=== PATIENT | female | born 1970 | race Caucasian/White ===

== ENCOUNTER → 2016-05-31 | Outpatient (CLI) | payer OTHER | LOC: RAD 07:24 | DX: Z12.31 Encounter for screening mammogram for malignant neoplasm of breast (principal) ==

== ENCOUNTER → 2016-06-08 | Outpatient (CLI) | payer OTHER | LOC: RAD 11:09 | DX: R92.8 Other abnormal and inconclusive findings on diagnostic imaging of breast (principal) ==

== ENCOUNTER 2017-05-24 11:40 | Emergency (ER) | payer OTHER ==
[~2017-05-24] VITALS: Ht 162.6 cm; Wt 77.1 kg
[2017-05-24 12:10] LABS: URINE BILIRUBIN NEGATIVE (Negative); URINE BLOOD NEGATIVE (Negative); URINE CLARITY CLEAR; URINE COLOR YELLOW; URINE GLUCOSE-RANDOM* NEGATIVE (Negative); URINE KETONES NEGATIVE (Negative); URINE LEUKOCYTES NEGATIVE (Negative); URINE NITRITE NEGATIVE (Negative); URINE PROTEIN (DIPSTICK) NEGATIVE (Negative); URINE UROBILINOGEN 0.2 E.U./dl (0.2-1.0)
[2017-05-24 12:30] LABS: ABSOLUTE NEUTROPHILS 4.7 thou/uL (1.4-8.2); BASOPHILS 0.5 % (0.0-2.0); HEMATOCRIT 37.5 % (37.0-47.0); HEMOGLOBIN 13.1 gm/dL (12.0-15.0); LYMPHOCYTES 29.4 % (24.0-44.0); MCH 30.3 pg (26.0-34.0); MCHC 34.8 g/dL (28.0-37.0); MONOCYTES 5.4 % (1.0-8.0); PLATELET COUNT 276 thou/uL (150-400); POLYS 64.7 % (36.0-66.0); RBC 4.31 mil/uL (4.20-5.00); RDW 12.9 % (10.5-14.5); WBC 7.3 thou/uL (4.0-11.0)
[2017-05-24 12:34] LABS: CALCIUM 9.1 mg/dL (8.5-10.1); CREATININE 0.9 mg/dL (0.6-1.0)
[2017-05-24 12:40] LABS: ALBUMIN 3.8 g/dL (3.4-5.0); TOTAL BILIRUBIN 0.5 mg/dL (<0.1-1.0); TOTAL PROTEIN 7.7 g/dL (6.4-8.2)
[2017-05-24] MEDS ORDERED: FLEXERIL PO (14:57)
[2017-05-24] MEDS ORDERED: PREDNISONE 20 M20 M1 PO (14:57)
[2017-05-24] MEDS ORDERED: NORCO 10-325 T1 EACH PO (14:57)
[2017-05-24 15:29] VITALS: BP 134/84
== END 2017-05-24 15:30 | disposition home or self-care (01) ==
LOC: ER 11:40
PROVIDERS: Physician Assistant
DX: M51.26 Other intervertebral disc displacement, lumbar region (principal); R10.9 Unspecified abdominal pain; I10 Essential (primary) hypertension; E03.9 Hypothyroidism, unspecified; E78.5 Hyperlipidemia, unspecified

== ENCOUNTER 2018-10-08 09:05 | Emergency (ER) | payer OTHER ==
[~2018-10-08] VITALS: Ht 162.6 cm; Wt 86.2 kg
[~2018-10-08 09:05] MED LIST: FLEXERIL PO; LISINOPRIL40 MG PO; MOBIC7.5 MG PO; NORCO 10-325 T1 EACH PO; PREDNISONE 20 M20 M1 PO; PREVACID30 M2 PO; SERTRALINE HCL50 MG PO; SYNTHROID125 MC1 PO; ZOCOR40 MG PO
[2018-10-08 09:33] LABS: ABSOLUTE NEUTROPHILS 4.7 thou/uL (1.4-8.2); BASOPHILS 0.3 % (0.0-2.0); EOSINOPHILS 0.1 % (0.0-3.0); HEMATOCRIT 40.8 % (37.0-47.0); HEMOGLOBIN 13.8 gm/dL (12.0-15.0); LYMPHOCYTES 33.7 % (24.0-44.0); MCH 28.9 pg (26.0-34.0); MCHC 33.8 g/dL (28.0-37.0); MCV 85.7 fL (80.0-100.0); MONOCYTES 6.5 % (1.0-8.0); PLATELET COUNT 341 thou/uL (150-400); POLYS 59.4 % (36.0-66.0); RBC 4.76 mil/uL (4.20-5.00); RDW 12.8 % (10.5-14.5); WBC 7.9 thou/uL (4.0-11.0)
[2018-10-08 09:41] LABS: ANION GAP 9 mmol/L (7-16); BUN 17 mg/dL (7-18); CALCIUM 9.5 mg/dL (8.5-10.1); CHLORIDE 98 mmol/L (98-107); CO2 27 mmol/L (21-32); CREATININE 1.3 mg/dL (0.6-1.0); GLUCOSE 126 mg/dL (74-106); POTASSIUM 3.8 mmol/L (3.5-5.1); SODIUM 134 mmol/L (136-145)
[2018-10-08 09:49] LABS: ALBUMIN 4.1 g/dL (3.4-5.0); MAGNESIUM 1.8 mg/dL (1.8-2.4); SGOT 22 U/L (15-37); SGPT 31 U/L (30-65); TOTAL BILIRUBIN 0.3 mg/dL (<0.1-1.0); TOTAL PROTEIN 7.9 g/dL (6.4-8.2); TROPONIN-I <0.06 ng/mL (<0.06)
[2018-10-08] MEDS ORDERED: ZOFRAN ODT4 MG DISSOLVE (11:47)
[2018-10-08] MEDS ORDERED: PRILOSEC OTC20 MG PO (11:47)
[2018-10-08] MEDS ORDERED: TRAMADOL 50 MG50 MG PO (11:47)
[2018-10-08 11:56] LABS: URINE BLOOD NEGATIVE (Negative); URINE CLARITY SL CLOUDY; URINE COLOR YELLOW; URINE GLUCOSE-RANDOM* NEGATIVE (Negative); URINE KETONES TRACE (Negative); URINE LEUKOCYTES-REFLEX 1+ (Negative); URINE NITRITE-REFLEX NEGATIVE (Negative); URINE PROTEIN (DIPSTICK) 2+ (Negative); URINE UROBILINOGEN 0.2 E.U./dl (0.2-1.0)
[2018-10-08 11:59] LABS: ICTOTEST (BILI CONFIRMATORY) Negative (Negative); URINE BILIRUBIN NEGATIVE (Negative)
[2018-10-08 12:25] VITALS: BP 124/72
[2018-10-08 12:29] LABS: HYALINE CASTS 0-3 Few /LPF (None Seen)
[2018-10-08 12:30] LABS: SQUAMOUS >10 Many /LPF (0-3); URINE WBC-REFLEX 6-15 Few /HPF (0-5)
[2018-10-08 12:31] LABS: CRYSTALS None Seen /LPF (None Seen); URINE RBC 0-2 Rare /HPF (0-2)
--- NOTE | 2018-10-08 13:24 | EKG ---
[place] [address] [facility] [place] [address] ELECTROCARDIOGRAM REPORT Name: TORIE HENLEY Room #: [facility]P [facility] [id number] Admission: 10/08/18 Attend Phys: Discharge: 10/08/18 Date of : 74 Report #: [id number] THIS REPORT FOR: //name// [facility] ED Test Date: 2018-10-08 Test Time: 09:11:26 Pat Name: TORIE HENLEY Department: Room: Gender: F Apartment House Manager: 12 : 1970 Requested By: Gordon Dumont Order Number: [id number] MD: Emmett Henriquez Measurements Intervals [place] Rate: 77 P: 17 [place]: 178 QRS: 64 QRSD: 92 T: 40 QT: 369 QTc: 418 Interpretive Statements Sinus rhythm Normal tracing No previous ECG available for comparison Electronically Signed On 10-08-2018 13:24:39 CDT by Emmett Henriquez [email or web address] <ELECTRONICALLY SIGNED> By: Emmett Henriquez MD, [facility] 10/08/18 1324 0911 0 Emmett Henriquez MD, FAC /EPI
== END 2018-10-08 12:25 | disposition home or self-care (01) ==
LOC: ER 09:05
PROVIDERS: Emergency Medicine
DX: I95.1 Orthostatic hypotension (principal); T38.0X5A Adverse effect of glucocorticoids and synthetic analogues, initial encounter; M54.5 Low back pain; R10.10 Upper abdominal pain, unspecified; R42 Dizziness and giddiness; I10 Essential (primary) hypertension; E03.9 Hypothyroidism, unspecified; E78.5 Hyperlipidemia, unspecified; Z90.89 Acquired absence of other organs; Y92.89 Other specified places as the place of occurrence of the external cause

== ENCOUNTER → 2018-12-22 | Outpatient (CLI) | payer OTHER ==
[~2018-12-22] MED LIST changes: +PRILOSEC OTC20 MG PO; +TRAMADOL 50 MG50 MG PO; +ZOFRAN ODT4 MG DISSOLVE
--- NOTE | 2018-12-24 17:06 | PATH ---
[facility] [address] [place] [address] PATHOLOGY RPT PROCEDURE Name: LORYTORIE RUIZ Room #: REG EDUIN Bhatt.#: [id number] Admission: 12/22/18 Date of : 74 Discharge: Report #: [id number] Path Case #: [id number] [facility] Accession Number: [id number] . 01 Material submitted: . stomach - BIOPSY OF RANDOM GASTRIC TISSUE TO R/O H. PYLORI . 01 Clinical history: . Pre-op diagnosis: Epigastric pain (EGD), screening (colon) Post-op diagnosis: Hiatal hernia, gastritis, normal colon R/O H. pylori . 02 Diagnosis: Gastric mucosa, random gastric tissue to rule out H. pylori, endoscopic biopsy: - Mild reactive gastropathy. - Negative for intestinal metaplasia or atrophy. - Negative for Helicobacter pylori (properly controlled immunohistochemical stain performed). (IUV/db; 12/24/2018) LBQ 12/24/2018 1336 Local . 02 Electronically signed: . Antoinette Monzon MD, Pathologist NPI- [id number] . 01 Gross description: . The specimen is received in formalin, labeled "Torie Henley, random gastric biopsy to R/O H. pylori". Received are five segments of pale valles soft tissue ranging in size from 0.3 to 0.6 cm in maximum dimensions. The specimen is submitted entirely in cassette A1. (CAA; 12/23/2018) QA/QA 12/23/2018 1126 Local . 02 Pathologist provided ICD-10: K31.9 . 02 CPT . 830789, N00197 Specimen Comment: A courtesy copy of this report has been sent to [phone] Specimen Comment: [phone] Specimen Comment: Report sent to / DR MENDOZA Performed at: [address] [id number] MD Naren Cross MD Phone: [phone] [place] [address] PATHOLOGY RPT PROCEDURE Name: TORIE HENLEY Room #: REG EDUIN Johnson#: [id number] Admission: 12/22/18 Date of : 74 Discharge: Report #: [id number] Path Case #: [id number] Performed at: [address] [id number] MD Antoinette Monzon MD Phone: [phone]
== END | disposition home or self-care (01) ==
LOC: GI 10:34
DX: Z12.11 Encounter for screening for malignant neoplasm of colon (principal); K31.9 Disease of stomach and duodenum, unspecified; K21.9 Gastro-esophageal reflux disease without esophagitis; I10 Essential (primary) hypertension; E78.00 Pure hypercholesterolemia, unspecified; E03.9 Hypothyroidism, unspecified; Z90.49 Acquired absence of other specified parts of digestive tract; Z98.890 Other specified postprocedural states; Z79.899 Other long term (current) drug therapy
CPT/HCPCS: 62110; 62900

== ENCOUNTER → 2019-07-23 | Outpatient (CLI) | payer OTHER ==
[2019-07-23 11:19] LABS: ALBUMIN 4.1 g/dL (3.4-5.0); ANION GAP 8 mmol/L (7-16); BUN 17 mg/dL (7-18); CALCIUM 8.9 mg/dL (8.5-10.1); CHLORIDE 101 mmol/L (98-107); CHOLESTEROL 243 mg/dL (<200); CO2 28 mmol/L (21-32); CREATININE 1.1 mg/dL (0.6-1.0); GLUCOSE 83 mg/dL (74-106); HDL CHOLESTEROL 51 mg/dL (>40); LDL CHOLESTEROL 155 mg/dL (<100); POTASSIUM 4.2 mmol/L (3.5-5.1); SGOT 41 U/L (15-37); SGPT 61 U/L (30-65); SODIUM 137 mmol/L (136-145); TC:HDL 4.8 Ratio (Not establshd); TOTAL BILIRUBIN 0.4 mg/dL (0.2-1.0); TOTAL PROTEIN 7.3 g/dL (6.4-8.2); TRIGLYCERIDE 185 mg/dL (<150); VLDL 37 mg/dL (<40)
== END ==
LOC: LABMALL 10:10
PROVIDERS: Family Medicine
DX: E78.5 Hyperlipidemia, unspecified (principal)

== ENCOUNTER → 2020-02-04 | Outpatient (CLI) | payer OTHER | LOC: LAB 14:30 | PROVIDERS: ATTEND Family Medicine | DX: Z20.828 Contact with and (suspected) exposure to other viral communicable diseases (principal) ==

== ENCOUNTER → 2020-03-08 | Outpatient (CLI) | payer OTHER ==
[2020-03-08 09:55] LABS: ALBUMIN 4.2 g/dL (3.4-5.0); ANION GAP 9 mmol/L (7-16); BUN 14 mg/dL (7-18); CALCIUM 9.8 mg/dL (8.5-10.1); CHLORIDE 102 mmol/L (98-107); CHOLESTEROL 284 mg/dL (<200); CO2 29 mmol/L (21-32); GLUCOSE 87 mg/dL (74-106); HDL CHOLESTEROL 51 mg/dL (>40); LDL CHOLESTEROL 162 mg/dL (<100); POTASSIUM 4.1 mmol/L (3.5-5.1); SGOT 23 U/L (15-37); SGPT 32 U/L (30-65); SODIUM 140 mmol/L (136-145); TC:HDL 5.6 Ratio (Not establshd); TOTAL BILIRUBIN 0.3 mg/dL (0.2-1.0); TOTAL PROTEIN 7.8 g/dL (6.4-8.2); TRIGLYCERIDE 356 mg/dL (<150); VLDL 71 mg/dL (<40)
== END ==
LOC: LAB 08:38
PROVIDERS: ATTEND Family Medicine
DX: E78.5 Hyperlipidemia, unspecified (principal); E03.9 Hypothyroidism, unspecified

== ENCOUNTER → 2020-06-01 | Outpatient (CLI) | payer OTHER ==
[2020-06-01 14:39] LABS: ABSOLUTE NEUTROPHILS 6.2 thou/uL (1.4-8.2); BASOPHILS 0.4 % (0.0-2.0); EOSINOPHILS 0.2 % (0.0-3.0); HEMATOCRIT 37.9 % (37.0-47.0); HEMOGLOBIN 12.9 gm/dL (12.0-15.0); LYMPHOCYTES 42.4 % (24.0-44.0); MCH 29.7 pg (26.0-34.0); MCHC 34.2 g/dL (28.0-37.0); MONOCYTES 7.4 % (1.0-8.0); PLATELET COUNT 365 thou/uL (150-400); POLYS 49.6 % (36.0-66.0); RBC 4.35 mil/uL (4.20-5.00); RDW 13.1 % (10.5-14.5); WBC 12.5 thou/uL (4.0-11.0)
[2020-06-01 15:01] LABS: ALBUMIN 3.7 g/dL (3.4-5.0); ANION GAP 9 mmol/L (7-16); BUN 21 mg/dL (7-18); CHLORIDE 103 mmol/L (98-107); CHOLESTEROL 226 mg/dL (<200); CO2 29 mmol/L (21-32); CREATININE 1.2 mg/dL (0.6-1.0); GLUCOSE 80 mg/dL (74-106); HDL CHOLESTEROL 65 mg/dL (>40); LDL CHOLESTEROL 117 mg/dL (<100); POTASSIUM 3.6 mmol/L (3.5-5.1); SGOT 21 U/L (15-37); SGPT 29 U/L (30-65); SODIUM 141 mmol/L (136-145); TC:HDL 3.5 Ratio (Not establshd); TOTAL BILIRUBIN 0.3 mg/dL (0.2-1.0); TOTAL PROTEIN 7.2 g/dL (6.4-8.2); TRIGLYCERIDE 221 mg/dL (<150); VLDL 44 mg/dL (<40)
[2020-06-02 05:07] LABS: GLYCOHEMOGLOBIN (HGB A1C) 5.7 % (4.8-5.6)
== END ==
LOC: MRI 14:02
PROVIDERS: ATTEND Family Medicine
DX: Z00.00 Encounter for general adult medical examination without abnormal findings (principal); M54.9 Dorsalgia, unspecified; M47.26 Other spondylosis with radiculopathy, lumbar region; M51.16 Intervertebral disc disorders with radiculopathy, lumbar region; M48.061 Spinal stenosis, lumbar region without neurogenic claudication; M25.80 Other specified joint disorders, unspecified joint

== ENCOUNTER → 2020-06-15 | Outpatient (CLI) | payer OTHER ==
[~2020-06-15] VITALS: Ht 162.6 cm; Wt 85.3 kg
[~2020-06-15] MED LIST changes: +CLARITIN10 M3 PO; +CYMBALTA60 MG PO; +FISH OIL 1,0001 EAC9 PO; -LISINOPRIL40 MG PO; +PEPCID20 MG PO; -PREVACID30 M2 PO; +PROBIOTIC1 EAC7 PO; +SENNA PLUS TAB1 EACH PO; +SUPER THERAVIT1 EACH PO; +TRICOR145 MG PO; +ZESTRIL20 MG PO
[2020-06-15 10:16] VITALS: BP 120/83
--- NOTE | 2020-06-15 10:52 | NUR ---
Pain Clinic Assessment: 1. History of Osteoarthritis: Not Applicable History of Rheumatoid Arthritis: Not Applicable 2. Height: 5 ft. 4 in. 162.6 cm. Weight: 188.0 lb. oz. 85.276 kg. Patient's BMI: 32.3 3. Vital Signs: BP: 120/83 Pulse: 92 Resp: 16 Temp: 02 Sat: 98 ECG Mon: 4. Pain Intensity: 5 5. Fall Risk: Dizziness: N Needs help standing or walking: N Fallen in the last 3 months: N Fall risk comments: 6. Patient on Blood Thinner: None 7. History of Hypertension: Y 8. Opioid Therapy greater than 6 weeks: N Opiate Contract Signed: 9. Risk Assessment Tool Provided: MODERATE 10. Functional Assessment Tool: 11. Recreational Drug Use: Past greater than 3 mos Drug Type: MARIJUANIA Tobacco Use: Never Smoker Tobacco Type: Amount or Packs/day: How Many Years: Alcohol Use: No Frequency: Quant:
--- NOTE | 2020-06-21 11:27 | HPC ---
[facility] [place] [address] PAIN MANAGEMENT CONSULTATION Name: TORIE HENLEY Room #: REG [facility] [id number] Admission: 06/15/20 Attend Phys: Martin Solomon DO Discharge: Date of : 74 Report #: [id number] THIS REPORT FOR: cc: Martin Hernandez James A. DO Johnson, James E. DO ~ DOC #: [id number] cc: DO Martin Ervin DO DATE OF SERVICE: 06/15/2020 REFERRING PHYSICIAN: Dr. Hernandez. CHIEF COMPLAINT: Left upper buttock and posterolateral thigh pain. HISTORY OF PRESENT ILLNESS: As you know, the patient is a very pleasant 49-year-old female who reports acute onset of left upper buttock and posterolateral thigh pain along with intermittent inguinal pain on the left side that began on 05/02/2020. The patient denies any specific injury or trauma. She has been provided 2 Medrol Dosepaks, both of which were helpful, but only during the time that she was on the steroid. She has had an IM Depo-Medrol injection about 2 weeks ago, which has improved overall pain. Prior to these treatments, the patient was undergoing chiropractic manipulation with myofascial release and decompression tables, which were providing some improvement. She also states that heating pad and foam roller over the area that tend to improve pain as well. She indicates that her pain is not present when lying down. She says it is hard to sit or stand for any length of time due to ongoing pain. She has been referred to our service to discuss treatment options for left buttock and posterolateral thigh pain, unresolved with conservative treatment. The patient indicates today pain is continuous. She describes the pain as burning, aching, pulling, sharp and stabbing, places current pain score of 5/0 daily average anywhere from 3-5/10. Worst pain has been is 10+/10. The patient reports the pain is only present while sitting or standing for long periods of time, improves with lying down, heat pads, myofascial release and foam rollers. She has been referred to our service to discuss treatment options for left buttock and posterolateral thigh pain. PAST MEDICAL HISTORY: 1. Hypertension. 2. Thyroid disease. 3. Emotional problems. 4. Degenerative joint disease. 5. Osteoarthritis. 6. History of gallbladder disease. 7. Gastroesophageal reflux disease. [facility] [address] [place] [address] PAIN MANAGEMENT CONSULTATION Name: TORIE HENLEY Room #: REG [facility].#: [id number] Admission: 06/15/20 Attend Phys: Martin Solomon DO Discharge: Date of : 74 Report #: [id number] 8. Seasonal allergies. PAST SURGICAL HISTORY: 1. Tonsillectomy, adenoidectomy. 2. Breast reduction. 3. Cholecystectomy. 4. Uterine ablation. SOCIAL HISTORY: The patient denies tobacco use. Denies IV or illicit drug use. Denies any chronic alcohol use. She does admit to marijuana use. She is employed as a nurse. She is working, not receiving workmen's compensation nor is she trying to obtain disability benefits. She is not in litigation in regard to pain. She is unaccompanied at today's visit. REVIEW OF SYSTEMS: Positive for night sweats, fatigue, weakness, peptic ulcer disease, gastroesophageal reflux disease, bilateral hand numbness, insomnia, thyroid disease. All other review of systems negative per 12-point review of systems other than those listed in history of present illness. Pain impact score 26-70. Mild to moderate interference of daily activities secondary to pain. ALLERGIES: CODEINE AND FENTANYL. CURRENT MEDICATIONS: Senokot-S 1 tablet p.o. at bedtime, probiotic 1 tablet per day, multivitamin 1 tablet per day, loratadine 10 mg p.r.n., [place] 3 fish oil 1 tablet per day, duloxetine 60 mg per day, fenofibrate 145 mg per day, famotidine 20 mg per day, levothyroxine 125 mcg daily, lisinopril 20 mg per day. IMAGING: MRI of the lumbar spine obtained on 06/01/2020 shows a T12-L1 unremarkable, L1-L2 unremarkable, L2-L3 unremarkable, L3-L4 unremarkable, L4-L5 unremarkable. L5-S1 shows disk space tapering endplate degenerative changes with minimal disk bulging, mild posterior facet degenerative changes. No significant neural foraminal or central canal stenosis. PHYSICAL EXAMINATION: VITAL SIGNS: Blood pressure 120/83, pulse 92, respiratory rate 16 and unlabored. The patient 98% on room air. Height 5 feet 4 inches tall, weight 188 pounds, BMI calculated 32.3. GENERAL: Well-developed, well-nourished, well-hydrated 49-year-old female appearing her stated age, placing current pain score of 5/10. HEENT: Normocephalic and atraumatic. Pupils are equal, round and responsive. The patient has normal extraocular muscular movement. She is wearing a mask in compliance with COVID-19 regulations. LUNGS: Clear. No wheeze, rhonchi or rales. CARDIOVASCULAR: Regular. No appreciable gallop, no rub. ABDOMEN: Soft, obese, normoactive bowel sounds. [facility] [address] [place] [address] PAIN MANAGEMENT CONSULTATION Name: TORIE HENLYE Room #: REG EDUIN Miller.#: [id number] Admission: 06/15/20 Attend Phys: Martin Solomon DO Discharge: Date of : 74 Report #: [id number] EXTREMITIES: Show no clubbing, no cyanosis. No appreciable edema. MUSCULOSKELETAL: The patient has palpatory tenderness over the left sacroiliac joint negative on the right. Thigh thrust maneuver is positive on the left. Bola test positive on the left, negative right. Modified Gaenslen's positive for axial low back pain on the left, negative right. Jose Manuel's test is positive with SI joint pain noted with this maneuver. No intrinsic hip pathology. Gait is mildly antalgic favoring the left lower extremity. Muscle bulk and tone equal and symmetrical in lower extremities, 5/5 intact to light touch from L1 through S2 dermatomes. Deep tendon reflexes are equal and symmetrical at the patella and Achilles. There is a noted 1 cm leg length discrepancy between the right lower extremity and left with left lower extremity 1 cm longer than the right. ASSESSMENT: 1. Sacroiliac joint dysfunction. 2. Sacroiliac joint pain. 3. Mild facet arthropathy, lumbar spine. PLAN: 1. Based on today's physical exam, the history the patient has provided, the description the patient uses in regard to pain as well as location of symptoms, it would appear the patient is suffering from sacroiliac joint pain. This was confirmed with the physical exam today. We did review the patient's MRI in its entirety and please do advise the patient there is only mild arthritic changes, no significant central canal or neural foraminal stenosis. The source of the pain correlates with left SI joint dysfunction. The imaging of the MRI does not complete the SI joint area, and thus, I cannot advise the patient on the amount of changes in the SI area. Given the fact that this is a new onset of symptoms, I would consider this to be more of an acute issue and should be treated in the following manner. We discussed physical therapy, stretching exercises and pelvic manipulation whether this be through her current chiropractor or she is [facility], who is adept at manipulation of the pelvic area to address sacroiliac joint dysfunction. We discussed suggestions and medication management utilizing a consistent nonsteroidal anti-inflammatory in conjunction with chiropractic manipulation and pelvic manipulation. We discussed SI joint injections as a possible treatment option, and we also discussed surgical options with the patient including fusion of the sacroiliac joint, which can be either done percutaneously with 2 different type of procedures or through orthopedics under general anesthesia with pinning of the SI joint. After reviewing the risks and benefits of all the proposed treatment options, the patient chose to begin with referrals to [facility] for pelvic manipulation and to begin the process of authorization for SI joint injection. 2. The patient was provided a referral to [facility] in the [facility]. This is a closest facility to the patient's home. I believe that pelvic [facility] [address] [place] [address] PAIN MANAGEMENT CONSULTATION Name: TORIE HENLEY Room #: REG CLJos Johnson#: [id number] Admission: 06/15/20 Attend Phys: Martin Solomon DO Discharge: Date of : 74 Report #: [id number] manipulation and improvement in the pelvic unleveling the patient has been suffering would significantly impact the SI joint pain she is experiencing. She will begin the treatment with [facility] and we will discuss the efficacy of followup visit. I have given the patient a referral to [facility] to begin that process immediately. 3. We will begin the process of obtaining prior authorization for the patient to undergo left sacroiliac joint injection under fluoroscopic guidance. We are hopeful that this authorization will take a very short period of time, and we will have that authorization available to have the patient return to undergo the first in a series of sacroiliac joint injections on the left to address sacroiliac joint pain. The patient can contact our clinic at any time to confirm progress of our authorization process. Once it has been completed, we will contact the patient having her return as quickly as possible to undergo the proposed left SI joint injection. 4. No medication changes made at today's visit. The patient will continue current medical therapy as prior prescribed. 5. We will see the patient back in followup visit for left SI joint injection under fluoroscopic guidance once this authorization has been obtained. 6. We wish to thank Dr. Hernandez for the referral of this patient to our clinic. We will keep you apprised of her response to treatment as we address left sacroiliac joint pain secondary to left sacroiliac joint dysfunction. Again, we wish to thank you for the opportunity to see this patient in consultation. Martin Solomon DO JEJ/KIMBERLY/TAJ <ELECTRONICALLY SIGNED> By: Martin Solomon DO 06/21/20 1127 1454 1314 Martin Solomon, DO /nt
== END ==
LOC: PAIN 09:30
PROVIDERS: ATTEND Anesthesiology Pain Medicine
DX: M53.3 Sacrococcygeal disorders, not elsewhere classified (principal); M96.1 Postlaminectomy syndrome, not elsewhere classified

== ENCOUNTER → 2020-06-29 | Outpatient (CLI) | payer OTHER ==
[~2020-06-29] VITALS: Ht 162.6 cm; Wt 87.0 kg
[2020-06-29 08:10] VITALS: BP 123/93
--- NOTE | 2020-06-29 08:13 | NUR ---
Pain Clinic Assessment: 1. History of Osteoarthritis: BACK History of Rheumatoid Arthritis: Not Applicable 2. Height: 5 ft. 4 in. 162.6 cm. Weight: 191.8 lb. oz. 87.000 kg. Patient's BMI: 32.9 3. Vital Signs: BP: 123/93 Pulse: 79 Resp: 18 Temp: 02 Sat: 98 ECG Mon: 4. Pain Intensity: 3 5. Fall Risk: Dizziness: N Needs help standing or walking: N Fallen in the last 3 months: N Fall risk comments: 6. Patient on Blood Thinner: None 7. History of Hypertension: Y 8. Opioid Therapy greater than 6 weeks: N Opiate Contract Signed: 9. Risk Assessment Tool Provided: MODERATE 10. Functional Assessment Tool: 11. Recreational Drug Use: Past greater than 3 mos Drug Type: Tobacco Use: Never Smoker Tobacco Type: Amount or Packs/day: How Many Years: Alcohol Use: No Frequency: Quant:
--- NOTE | 2020-07-05 15:48 | HPC ---
[facility] [place] [address] PAIN MANAGEMENT CONSULTATION Name: TORIE HENLEY Room #: REG EDUIN Miller.#: [id number] Admission: 06/29/20 Attend Phys: Martin Solomon DO Discharge: Date of : 74 Report #: [id number] THIS REPORT FOR: cc: Martin Hernandez James A. DO Johnson, James E. DO ~ DOC #: [id number] DATE OF SERVICE: 06/29/2020 CHIEF COMPLAINT: Bilateral upper buttock pain, left greater than right. HISTORY OF PRESENT ILLNESS: As you know, the patient is a very pleasant 49-year-old female reporting acute onset of left upper buttock and posterolateral thigh pain with intermittent inguinal pain on the left side that began 05/02/2020. She has undergone treatment with oral medications with some improvement in symptoms. She was seen in consultation as she was failing conservative treatment option with recurrence of symptoms. She was diagnosed with sacroiliac joint dysfunction and sacroiliac joint pain. She has trialed conservative treatment undergoing pelvic manipulation twice a week since our first visit. She is seeing significant pain improvement. She is now reporting pain score 3/10. She is experiencing bilateral symptoms at this juncture requesting to undergo bilateral SI joint injections under fluoroscopic guidance to address the chronic left and acute onset of right SI joint pain. The patient denies injury or trauma or any changes in medical history since her last visit. ALLERGIES: CODEINE AND FENTANYL. CURRENT MEDICATIONS: See chart. SOCIAL HISTORY: The patient denies tobacco. Denies IV or illicit drug use. Denies any chronic alcohol use. She does admit to marijuana use. She is employed as a nurse, working, not receiving workmen's compensation, unaccompanied today. IMAGING: No new imaging available. PHYSICAL EXAMINATION: VITAL SIGNS: Blood pressure 123/93, pulse 79, respiratory rate 18 and unlabored. The patient 98% on room air. Height 5 feet 4 inches tall, weight 191.8 pounds, BMI calculated 32.9. GENERAL: Well-developed, well-nourished, well-hydrated exogenously obese 49-year-old female appearing stated age, pain is rated today at 3/10 bilateral SI joint. HEENT: Normocephalic, atraumatic. Pupils are round. Extraocular muscles are intact. She is wearing a mask in compliance with COVID-[address] [address] PAIN MANAGEMENT CONSULTATION Name: TORIE HENLEY Room #: REG CLI [facility].#: [id number] Admission: 06/29/20 Attend Phys: Martin Solomon DO Discharge: Date of : 74 Report #: [id number] EXTREMITIES: Show no clubbing, no cyanosis, no edema. MUSCULOSKELETAL: The patient remains with tenderness to palpation over the left sacroiliac joint and mildly over the right. Thrust maneuver is positive on the left, negative right. Bola's test is positive on the left, negative right. Modified Gaenslen's positive for axial low back pain. No radiation of symptoms. Seated straight leg raising negative. Supine straight leg raising negative. ASSESSMENT: 1. Bilateral sacroiliac joint dysfunction, left greater than right. 2. Bilateral sacroiliac joint pain, left greater than right. 3. Mild facet arthropathy, lumbar spine. PLAN: 1. The patient returns today in followup visit indicating improvement in symptoms with the SI joint manipulation being performed twice a week since our visit of 06/15/2020. She is going to continue treatment, but has returned today in followup visit for bilateral SI joint injections under fluoroscopic guidance. She is reporting acute onset of right buttock and posterolateral thigh pain consistent with SI joint pain and her chronic left SI joint dysfunction. She has been consented to undergo the procedure today. She has been advised the risks and benefits, states understood and wished to proceed. 2. No medication changes made at today's visit. The patient will continue current medical therapy as prior prescribed. 3. We plan to see the patient back in followup visit in 30 days. At that time, review the efficacy of the bilateral SI joint injections and determine if next in the series are going to be necessary. 4. The patient was advised risks and benefits of bilateral SI joint injections. These risks include but are not necessarily limited to bleeding, bruising, infection, worsening pain, no relief of pain, also risk of temporary or permanent muscle weakness, temporary or permanent joint destruction and . The patient states understood and wished to proceed. DESCRIPTION OF PROCEDURE: Bilateral sacroiliac joint injections under fluoroscopic guidance. After obtaining written consent, the patient was taken back to fluoroscopy suite, placed in prone position with pillow under the pelvis to decrease lumbar lordosis. Skin overlying the gluteal sacral area, both on the left and right side were prepped and draped in aseptic fashion using chlorhexidine. Medial to lateral oblique projection allowed separation of the anterior and posterior branches of the joint space to be visualized. The skin and subcutaneous tissue over the target sites of the injections were anesthetized with 3 mL 1% preservative-free lidocaine utilizing a 27-gauge 1-1/4-inch needle. Two 22-gauge 3-1/2 inch spinal needles with bent tips were directed to the inferior aspect of each of the sacroiliac joints using a posterior approach. [facility] [address] [address] PAIN MANAGEMENT CONSULTATION Name: TORIE HENLEY Room #: REG Jos Johnson#: [id number] Admission: 06/29/20 Attend Phys: Martin Solomon DO Discharge: Date of : 74 Report #: [id number] "giving away" at the needle hub was noted once the dorsal sacroiliac and interosseous ligaments were engaged. After negative aspiration for heme both on the right and the left side, 0.3 mL of Omnipaque was injected outlining the coin-shaped inferior recess on the left and on the right. Propagating responses consistent of intense buttock pain were negative. After negative aspiration for heme, 3 mL of a solution containing 2 mL, 40 mg per mL 80 mg total triamcinolone along with 4 mL of bupivacaine 0.5% injected in each joint. [place] were retracted approximately intermediate flushed with 1 mL of 1% lidocaine bilaterally and removed. Sterile bandage placed over injection site. There were no new motor deficits or sensory deficits noticed in the lower extremities after procedure. The patient tolerated the bilateral SI joint injections well without complication. After meeting our discharge criteria, the patient discharged home. Martin Solomon DO JEJ/KDA <ELECTRONICALLY SIGNED> By: Martin Solomon DO 07/05/20 1548 0851 2123 Martin Solomon DO /analilia
== END | disposition home or self-care (01) ==
LOC: PAIN 06:57
PROVIDERS: ATTEND Anesthesiology Pain Medicine
DX: M53.3 Sacrococcygeal disorders, not elsewhere classified (principal); M47.26 Other spondylosis with radiculopathy, lumbar region; Z98.890 Other specified postprocedural states; Z79.899 Other long term (current) drug therapy; Z88.8 Allergy status to other drugs, medicaments and biological substances

== ENCOUNTER → 2020-10-31 | Outpatient (CLI) | payer OTHER | LOC: MRI 10:32 | PROVIDERS: ATTEND Nurse Practitioner | DX: M19.012 Primary osteoarthritis, left shoulder (principal); M25.512 Pain in left shoulder ==